=== PATIENT | female | born 1970 | race Caucasian/White ===

== ENCOUNTER → 2018-01-28 | Outpatient (CLI) | payer BC ==
--- NOTE | 2018-01-28 17:06 | DIAGNOSTIC IMAGING REPORT ---
L LOWER EXT JOINT WITHOUT CLINICAL HISTORY: LT ANKLE PAIN posterior back pain TECHNIQUE: Multiaxial MRI acquisition COMPARISON STUDY: None FINDINGS: Subchondral lesion of the medial talar dome. This measures 7 x 6 x 7.5 mm. There is no major bony substance loss although there is focal considerable thinning of the articular surface. Signal characteristics of the remaining osseous structures are unremarkable. Findings of a mild sprain of the lateral collateral ligament complex. The medial complex is intact. All remaining ligamentous and tendinous structures are unremarkable. Posterior tibial tendon is complex as well as peroneal complex appear unremarkable. IMPRESSION: 1. Osteochondral defect medial talar dome measuring 7 x 6 x 7.5 mm. 2. No major loss of bony substance, although there is significant thinning of the articular surface overlying this process. 3. Mild sprain lateral collateral ligament complex. 4. Remainder of the study is unremarkable. The above report was generated using voice recognition software. It may contain grammatical, syntax or spelling errors. Electronically signed by: Elliot Rodas M.D. 01/28/2018 5:04 PM Dictated Date/Time: 01/28/2018 4:56 PM
== END | disposition home or self-care (01) ==
LOC: C.MRI 15:35
PROVIDERS: ATTEND Family Medicine
DX: M25.572 Pain in left ankle and joints of left foot (principal); W19.XXXD Unspecified fall, subsequent encounter; R26.2 Difficulty in walking, not elsewhere classified; M21.962 Unspecified acquired deformity of left lower leg

== ENCOUNTER 2023-06-30 09:03 | Observation (INO) ==
--- NOTE | 2023-05-28 10:23 | PAT Medication Instructions ---
Medication Instructions Date of Service May 28, 2023 Home Medications amlodipine 10 mg tablet 10 mg PO QAM calcium carbonate 200 mg calcium (500 mg) chewable tablet (Tums) 200 mg PO UD PRN Heartburn ibuprofen 200 mg tablet 400 - 600 mg PO UD PRN Pain naproxen sodium 220 mg tablet (Aleve) 220 mg PO UD PRN Pain sertraline 25 mg tablet 25 mg PO QAM ASK your surgeon for instructions ibuprofen 200 mg tablet 400 - 600 mg PO UD PRN Pain naproxen sodium 220 mg tablet (Aleve) 220 mg PO UD PRN Pain DO NOT take the morning of surgery calcium carbonate 200 mg calcium (500 mg) chewable tablet (Tums) 200 mg PO UD PRN Heartburn Take morning of surgery With a small sip of water, OTHERWISE NOTHING TO EAT OR DRINK AFTER MIDNIGHT: amlodipine 10 mg tablet 10 mg PO QAM sertraline 25 mg tablet 25 mg PO QAM Other Notes If you have any questions please call us at [phone] or [phone] or [phone] or [phone]
--- NOTE | 2023-06-03 11:31 | Anesthesiology Consultation ---
Date of Service June 03, 2023 Assessment & Plan (1) Encounter for pre-operative examination: - BMP hemolyzed. Patient was contacted, she plans to have lab done through [facility] in [place]. Order to be faxed. She is going to call lab prior to going to confirm they have order and otherwise will contact our clinic. - awaiting PCP pre-operative evaluation. Form to be faxed to PCP. - Case discussed with Dr. Vargas who advised PCP optimization form regarding nocturnal symptoms of severe heartburn waking patient from sleep over recent weeks, alleviated with TUMS. Patient made aware at PAT visit and she is agreeable, states she will also reach out to her PCP. Optimization form and PAT testing to be faxed to PCP. Chart Review Chart Review: Pending: Refer to Additional Notes / Consult section and Patient seen in Pre Admission Testing Teaching & Discussion Pre-Anesthesia Teaching/Discussion Notes: Instructed NPO after midnight before surgery, except medications with 15 cc of water. Medication instructions provided according to the PAT guidelines. History Surgery Operation Date: 06/30/23 12:40 Proposed Procedures p Right Anterior Total Hip Arthroplasty - Jacky Pappas, Height/Weight Height: 5 ft 2.5 in Weight: 87.7 kg Allergies Allergy/AdvReac Type Severity Reaction Status Date / Time animal dander Allergy Unknown Sneezing, Verified 05/30/23 13:36 wheezing Medications Home Medications Medication Instructions Recorded Confirmed Last Taken amlodipine 10 mg tablet 10 mg PO QAM 05/27/23 05/27/23 Unknown calcium carbonate 200 mg calcium 200 mg PO UD PRN Heartburn 05/27/23 05/27/23 Unknown (500 mg) chewable tablet (Tums) ibuprofen 200 mg tablet 400 - 600 mg PO UD PRN Pain 05/27/23 05/27/23 Unknown naproxen sodium 220 mg tablet 220 mg PO UD PRN Pain 05/27/23 05/27/23 Unknown (Aleve) sertraline 25 mg tablet 25 mg PO QAM 05/27/23 05/27/23 Unknown Past Medical History Medical History Obesity History of COVID-summer-symptoms resolved Encounter for pain management Hx pain management issues post op with ankle surgeries: found rotating hydrocodone and ibuprofen was effective Avascular necrosis Heartburn Worsened over last 2 months, nocturnal symptoms of waking with severe heartburn-resolves with TUMs Asthma denies inhaler use Anxiety HTN (hypertension) controlled, stable per pt Patient denies h/o stroke, seizures, heart attack, heart failure, DM, blood clots/DVTs or blood transfusions. Exercise / Class Metabolic Activity II 4-5 Yardwork/Stairs/Walk up hill (denies chest discomfort or shortness of breath with 1 FOS) Past Surgical History Surgical History History of surgery Benign tumor removed from gum as H/O sinus surgery H/O wrist surgery Right/no hardware History of ankle surgery Total x3 (Left, one was replacement) History of ankle joint replacement Left Past Anesthesia History No Hx of Anesthesia Complications and No Family Hx of Anesthesia Complications History of PONV No Hx of PONV and No Hx of Motion Sickness Social History Smoking Status: Never smoker Do You Dip or Chew Tobacco: No Alcohol type: wine alcohol intake frequency: a few times a month Hx Substance Use: No substance use type: does not use Review of Systems Patient denies chest pain, shortness of breath, dyspnea on exertion, snoring, witnessed apneas, fever, chills, cough, wheezing, or palpitations. Physical Exam Vital Signs Vitals BP 142/95 P 96 TEMP 98.1 SP02 99% on RA RESP 17 Physical Patient resting comfortably in chair in no acute distress, alert and oriented, responding appropriately throughout visit Full cervical extension range of motion without pain TMD 3.5 finger breadths Mallampati Score 2 Dentition: lower front permanent bridge, denies chipped or loose teeth, c aps/crowns, or implants Lungs: normal respiratory effort. Good air movement, clear throughout to auscultation, no adventitious breath sounds Cardiac: regular rate and rhythm, no murmurs noted Carotid arteries: negative bruit bilat Lab Results Anesthesia Preop Results Results Anesthesia Widget: WBC 6.48 K/ul (4.8-10.8) 06/03/23 Hgb 13.2 g/dl (12.0-16.0) 06/03/23 Hct 40.8 % (37.0-47.0) 06/03/23 Plt 323 K/uL (130-400) 06/03/23 PT 10.5 Seconds (9.0-12.0) 06/03/23 PTT 28.1 Seconds (21.0-31.0) 06/03/23 INR 1.0 (0.9-1.1) 06/03/23 Blood Type A Positive 06/03/23 Antibody Screen NEGATIVE 06/03/23 Testing Electrocardiogram Date: 06/03/23 NSR, rate 88 bpm Chest X-Ray Date: 06/03/23 No acute process
[~2023-06-30 09:03] MED LIST: ACETAMINOPHEN 500 MG TAB PO SCH; BUPIVACAINE 0.5 % 5 MG/1 ML PF 10ML VIAL ONE; FAMOTIDINE 20 MG TAB PO SCH; GABAPENTIN 900 MG DOSE PO SCH; Ketorolac (*for OR use only*) 30 MG, dexAMETHasone 4 MG, KETAMINE HCL (**OR use only) 1... INFIL SCH; LR 60ML/HR IV SCH; TRANEXAMIC ACID 1,000 MG **IV Intra-op IV SCH; TRANEXAMIC ACID 1,000 MG **IV Pre-op IV SCH; ceFAZolin 2000MG 2,000 MG/15 ML SYR IV SCH; dexAMETHasone 4 MG TAB PO SCH
[2023-06-30] MEDS ORDERED: PROMETHAZINE HCL 6.25 MG in SODIUM CHLORIDE 0.9% 50 ML IV PRN (10:33)
[2023-06-30] MEDS ORDERED: ePHEDrine sulfate 50 MG/ML AMP IV PRN (10:33)
[2023-06-30] MEDS ORDERED: ONDANSETRON INJ 2 MG/ML 2 ML VIAL IV PRN ×2 (10:33→15:12)
[2023-06-30] MEDS ORDERED: ATROPINE SULFATE 0.1 MG/ML 10ML SYR IV PRN (10:33)
[2023-06-30] MEDS ORDERED: ONDANSETRON INJ 2 MG/ML 2 ML VIAL ONE (10:51)
[2023-06-30] MEDS ORDERED: PROPOFOL IV EMULSION 10 MG/ML 20 ML VIAL IV ONE ×2 (10:51→12:12)
--- NOTE | 2023-06-30 10:51 | History & Physical Bridge Note ---
Date of Service June 30, 2023 History & Physical Bridge Note I have examined the patient, reviewed the History & Physical and in the interval since the performance of the History & Physical I have noted the following changes of clinical significance: no changes noted
[2023-06-30] MEDS ORDERED: MIDAZOLAM HCL 1 MG/ML 2ML VIAL ONE ×2 (10:52→11:37)
[2023-06-30] MEDS ORDERED: DexMEDEtomidine HCL IV 100 MCG/ML VIAL IV ONE (10:52)
[2023-06-30] MEDS ORDERED: FAMOTIDINE/PF 20 MG/2 ML VIAL IV ONE (11:14)
[2023-06-30] MEDS ORDERED: ORTHO JOINT ANESTHETIC ONE (11:28)
[2023-06-30] MEDS ORDERED: PHENYLEPHRINE HCL 10 MG/ML VIAL ONE (12:11)
--- NOTE | 2023-06-30 12:43 | Operative Report ---
PG Post Operative Report Pre & Post Diagnosis Operation Date: 06/30/23 11:00 Pre-Op Diagnosis: Degenerative Joint Disease Right Knee Post-Op Diagnosis: Degenerative Joint Disease Right Knee I identified the patient and participated in the time-out.: Yes Procedure Operation Date: 06/30/23 11:00 Actual Procedures p Right Anterior Total Hip Arthroplasty(Right) - Jacky Pappas DO Surgeon Jacky Pappas DO Senior Data Warehouse Architect Jacky Wang PA-C Estimated Blood Loss 250 Findings Consistent with Post-Op Diagnosis Specimens Right femoral head Description of Procedure Implants used I used a [employer]immer[employer]omet total hip arthroplasty system with a size 4 standard offset Taperloc stem, a 48 mm G7 cup with a 25mm screw, an E1 polyethylene liner, a 32 mm ceramic head with a -3 neck. Stefania arrived at the hospital for the above procedure. She was seen in the preoperative holding area and the operative extremity was identified and signed. She was given a spinal anesthetic, a preoperative antibiotic, and TXA. She was then taken back to the operating room and laid on the table in the supine position. She was given basic sedation. The operative leg was secured to a Puristst leg positioner. The hip was then prepped and draped in sterile fashion. A timeout was done and the patient and the operative extremity was properly identified. An anterior approach was used. Dissection was taken down through the fascia and the tensor muscle belly was retracted laterally and the rectus was retracted medially. The circumflex vessels were identified and ligated. The capsule was then incised and tagged for later repair. The femoral neck was then cut and the femoral head was removed. The acetabulum was exposed. Time was spent doing a complete circumferential labral release. Sequential reaming of the acetabulum up to a size 47 reamer was done. Final reamings were done under fluoroscopy to ensure appropriate version. A Biomet 48 mm G7 cup was then impacted into place. A single 25 mm screw was placed. The E1 polyethylene liner was then snapped into place. Surrounding soft tissues were then injected with 100 cc of an ortho pedic pain control cocktail. The proximal femur was then exposed. Sequential broaching up to a size 4 broach was done. Off that broach a size 32 head with a -3 neck was trialed. The hip was reduced and fluoroscopic images showed anatomic alignment of the implants in acceptable length. The broach was removed. The final size 4 standard offset Taperloc stem was then impacted into place. A ceramic 32 mm head with a -3 neck was then impacted onto the stem and the hip was reduced. Final fluoroscopic images showed anatomic alignment of the hip. The capsule was then closed with #1 Vicryl suture. A dilute betadyne lavage was then done for 3 minutes. The joint was then irrigated with normal saline solution. The fascia was closed with #1 PDS suture. Skin was closed with 2-0 Vicryl, lucy, and a Silverlon dressing. She was then transferred to a hospital bed and taken to the post anesthesia care unit in stable condition. She tolerated the procedure well. Jacky Wang PA-C, was present for the entire procedure. He was critical for patient positioning, prepping, draping, retraction exposure, wound closure and application of sterile dressing. I attest to the content of the Intraoperative Record and any orders documented therein. Any exceptions are noted below.
--- NOTE | 2023-06-30 13:34 | XRay Report ---
XR hip 1V RT w pelvis CLINICAL HISTORY: Postoperative evaluation. COMPARISON: Right hip radiographs December 18, 2022. FINDINGS: Alignment of the total right hip arthroplasty is anatomic. There is no periprosthetic frac ture or unexpected radiopaque foreign body. There are skin lucy. IMPRESSION: Expected findings following total right hip arthroplasty. ACT 112: Negative or not required by law. Electronically signed by: Ryan Saldaña M.D. 06/30/2023 1:32 PM
--- NOTE | 2023-06-30 13:52 | Fluoroscopy Report ---
FL hip RT 1V CLINICAL HISTORY: Right anterior hip COMPARISON STUDY: Right hip radiographs December 18, 2022. FLUOROSCOPY TIME: 11 seconds. Ka, r: 1.3148 mGy FLUOROSCOPIC IMAGES: 2 FINDINGS: Fluoroscopy was provided during total right hip arthroplasty. Acetabular screw is noted. Patino rdware is intact. There is no fracture. IMPRESSION: Fluoroscopy provided during total right hip arthroplasty. ACT 112: Negative or not required by law. Electronically signed by: Ryan Saldaña M.D. 06/30/2023 1:50 PM
[2023-06-30] MEDS: fentaNYL citrate PF 100 MCG/2 ML VIAL IV PRN ×2 (14:00→14:06)
[2023-06-30] MEDS ORDERED: MAGNESIUM HYDROXIDE SUSP 30 ML UDC PO PRN (15:12)
[2023-06-30] MEDS ORDERED: NALOXONE HCL 0.4 MG/1 ML VIAL/CARP IV PRN (15:12)
[2023-06-30] MEDS ORDERED: bisacodyL 10 MG SUPP PR PRN (15:12)
[2023-06-30] MEDS ORDERED: METOCLOPRAMIDE HCL INJ 5 MG/ML 2 ML VIAL IV PRN (15:12)
--- NOTE | 2023-06-30 15:19 | Anesthesiology Progress Note ---
Date of Service June 30, 2023 Anesthesia Post Procedure Vital Signs Vital Signs: Temp Pulse Resp BP BP Pulse Ox O2 Del Method 06/30/23 14:40 85 18 132/78 93 Room Air 06/30/23 14:25 89 14 126/80 92 Room Air 06/30/23 14:10 85 15 123/86 94 Room Air 06/30/23 13:55 82 17 117/84 94 Room Air 06/30/23 13:40 80 20 108/81 94 Room Air 06/30/23 13:30 37.1 C 81 19 116/83 95 Room Air 06/30/23 13:20 86 18 93/69 L 95 Room Air 06/30/23 13:10 84 16 93/72 L 100 Oxymask 06/30/23 13:03 36.7 C 94 H 14 97/65 L 99 Oxymask 06/30/23 09:36 37.2 C 106 H 20 148/99 H 98 Room Air O2 Flow Rate 06/30/23 14:40 06/30/23 14:25 06/30/23 14:10 06/30/23 13:55 06/30/23 13:40 06/30/23 13:30 06/30/23 13:20 06/30/23 13:10 7 06/30/23 13:03 7 06/30/23 09:36 Pain Intensity Right Hip: Pain Intensity: 4 Transfer of Care Handoff Completed per policy Notes Mental Status: alert / awake / arousable and participated in evaluation Patient Amnestic to Procedure: Yes Nausea / Vomiting: adequately controlled Pain: adequately controlled Airway Patency, RR, SpO2: stable & adequate BP & HR: stable & adequate Hydration State: stable & adequate Neuraxial Anesthesia: was administered and sensory block is resolving Anesthetic Complications: no major complications apparent and Pt Satisfied with anesthetic care
[2023-06-30] MEDS: ACETAMINOPHEN 500 MG TAB PO SCH ×2 (15:54→21:58)
[2023-06-30] MEDS: KETOROLAC 30 MG/ML VIAL IV SCH ×2 (15:55→20:38)
[2023-06-30] MEDS: SODIUM CHLORIDE 0.9% 1,000 ML IV SCH (15:56)
[2023-06-30] MEDS: oxyCODONE HCL IR 5 MG TAB (IMMEDIATE RELEASE) PO PRN (18:41)
[2023-06-30] MEDS: ceFAZolin 2000MG 2,000 MG/15 ML SYR IV SCH (19:29)
[2023-06-30] MEDS: HYDROmorphone INJ 0.5 MG/0.5 ML SYR IV PRN ×2 (19:29→23:30)
[2023-06-30] MEDS: ASPIRIN 81 MG ECTAB PO SCH (20:39)
[2023-06-30] MEDS: DOCUSATE SODIUM 100 MG CAP PO SCH (20:39)
[2023-06-30] MEDS ORDERED: SENNA 8.6 MG TAB PO SCH (21:00)
[2023-07-01] MEDS: SODIUM CHLORIDE 0.9% 1,000 ML IV SCH (02:08)
[2023-07-01] MEDS: ceFAZolin 2000MG 2,000 MG/15 ML SYR IV SCH (03:33)
[2023-07-01] MEDS: oxyCODONE HCL IR 5 MG TAB (IMMEDIATE RELEASE) PO PRN ×3 (03:33→12:12)
[2023-07-01] MEDS: KETOROLAC 30 MG/ML VIAL IV SCH ×2 (03:34→09:24)
[2023-07-01] MEDS: ACETAMINOPHEN 500 MG TAB PO SCH (05:55)
[2023-07-01] MEDS ORDERED: dexAMETHasone 4 MG TAB PO SCH (08:00)
[2023-07-01] MEDS: ASPIRIN 81 MG ECTAB PO SCH (08:02)
[2023-07-01] MEDS: DOCUSATE SODIUM 100 MG CAP PO SCH (08:03)
[2023-07-01] MEDS ORDERED: MULTIVITAMIN TAB PO SCH (09:00)
[2023-07-01] MEDS ORDERED: INFLUENZA VIRUS QUADRIVALENT VACCINE (IIV4) 0.5 ML SYR IM ONE (09:00)
[2023-07-01] MEDS ORDERED: SERTRALINE HCL 50 MG TABLET PO SCH (09:00)
[2023-07-01] MEDS ORDERED: amLODIPine BESYLATE 5 MG TAB PO SCH (09:00)
--- NOTE | 2023-07-01 09:36 | Orthopedic Progress Note ---
Date of Service July 01, 2023 Assessment & Plan (1) Status post right hip replacement: Overall, she is doing quite well today with good pain control to the right hip. She is going to work with physical therapy today to work on ambulation and range of motion exercises. She is on aspirin for DVT prophylaxis. She can be discharged later today once evaluated by physical therapy. She will follow-up in 2 weeks with orthopedics for postoperative care. Subjective . Stefania was seen and evaluated this morning on rounds resting comfortably at bedside no apparent distress. She notes that her pain is well-controlled today. She has been ambulating to the bathroom and transitioning from bed to chair. She is set to work with therapy later today. She denies any other concerns today. Review of Systems All systems reviewed & are unremarkable except as noted in HPI & below. Physical Exam . On physical examination of the right hip, her dressing is in place, clean, dry, and intact. Her leg is out in full extension. She has active plantarflexion dorsiflexion to the right ankle. +2 DP and PT pulses. Less than 2-second capillary refill. Normal sensation. Neurovascular intact. Results & Data Results & Data Laboratory Results . Diagnostic Findings . Postoperative x-rays of the right hip show prosthesis to be in anatomical alignment with no signs of fracture complication or loosening. PG Care Time/CCT Total # of Minutes Spent Total Time Spent with Patient: Total time spent is greater than 50% in coordination of care (as documented) at patient's floor/unit and/or counseling patient: Coding Level of Care Code 75123 Post Operative Follow-Up Diagnoses Status post right hip replacement Z96.641
--- NOTE | 2023-07-01 09:38 | Discharge Summary ---
Date of Service July 01, 2023 Principal Diagnosis Same as "Discharge Diagnosis" noted below under Discharge Instructions. Discharge Exam . On physical examination of the right hip, her dressing is in place, clean, dry, and intact. Her leg is out in full extension. She has active plantarflexion dorsiflexion to the right ankle. +2 DP and PT pulses. Less than 2-second capillary refill. Normal sensation. Neurovascular intact. Discharge Data Procedures Performed Operation Date: 06/30/23 11:00 Actual Procedures p Right Anterior Total Hip Arthroplasty(Right) - Jacky Pappas DO Ordered Studies 06/30/23 11:00 FL hip RT 1V Routine Hospital Course (1) Status post right hip replacement: On June 30, [address] [facility], [place] and underwent a right total hip arthroplasty without complications. She had a spinal anesthetic. Postoperatively, she was started on aspirin for DVT prophylaxis and transferred to the general orthopedic floor in stable condition. Her hospital course was uneventful. On postoperative day 1, her vital signs were stable and her pain was well-controlled. She participated well with with physical therapy doing ambulation and range of motion exercises. She was then discharged home in stable condition. She is going to follow-up with orthopedics in 2 weeks for postoperative care. PG Care Time/CCT Total # of Minutes Spent Total Time Spent with Patient: Total time spent is greater than 50% in coordination of care (as documented) at patient's floor/unit and/or counseling patient: Discharge Plan Discharge Items Patient Disposition: Home - Home Health Services Reason For Visit: Degenerative Joint Disease Right hip Discharge Diagnosis: Right hip replacement Activity: Per Instructions section Non-emergency contact: Surgeon Call non-emergency contact if: your wound has increased redness and your wound has increased drainage Follow-up/Referrals: PCP,NO [Primary Care Provider] - Diet: Regular Addtl Attending Provider Instructions: Activity and Therapy Recommendations: * If you are using [facility] then therapy will be provided at your home until they feel you have accomplished all of your goals. * If you are using [facility] then Physical Therapy will be provided until they feel you are ready to start Outpatient Physical Therapy. * If you are not using home therapy then Outpatient Physical Therapy should start about 3-5 days from your day of surgery. Therapy will last about 6-10 weeks * You were shown a series of exercises in the hospital. Do these exercises three times each day including the exercises you were shown in physical therapy. * Get up and walk several times each day.~ For the first four weeks, try not to stand or walk for more than one hour at a time. If you do stand or walk for more than one hour, you will not hurt anything, but your leg will likely swell.~~ * As you feel comfortable, you may change from the walker or crutches to a cane and~then to independent walking. Medications: * Narcotic You will likely be sent home from the hospital with a prescription for the narcotic pain medication that worked best throughout your stay. * Cefadroxil -take the antibiotic twice a day for 10 days to help prevent infection * Aspirin Most patients will be required to take Aspirin 81mg twice a day for 6 weeks after surgery. This is obtained [id number] and a prescription is not necessary. * Other medications may be prescribed for specific circumstances. If you have any questions, please call the office at . * Resume previous home medications unless otherwise instructed TEDs/Elastic Stockings: The white elastic stockings help limit swelling and prevent blood clots from forming in your legs. The more you wear them, the more they work. Wear them for six weeks. Dressing Care: Leave the Silverlon dressing in place for 7 days. After 7 days you may remove the dressing. If the incision is not draining then you may leave the lucy open to air. If there is a little bit of drainage or if the lucy are getting stuck on your clothing then cover the incision with a dry dressing. The lucy will be removed at your 2 week follow-up appointment. Showering: You may shower with the Silverlon dressing in place. Do not let the shower spray hit the dressing directly. Pat the Silverlon dressing dry. If the dressing becomes wet underneath, then simply remove the dressing. Keep the incision dry until you are 7 days out from the day of surgery. After 7 days you may remove the Silverlon dressing and shower with the lucy exposed. Let soapy water run over the lucy and pat them dry. Do not scrub or soak the incision. Things To Watch For: * Drainage from the incision site that occurs more than one week after your surgery. * Increased redness at the incision site. * Fever above 102 degrees Fahrenheit. * Unusual chest pain or shortness of breath. * Call [facility] at with any of the above problems Follow-Up Visit: Follow-up with Dr. Pappas's PA (Jacky Wang) 2-3 weeks after your day of surgery. He will remove your lucy and answer any questions. If you have any additional questions or concerns, Dr Pappas is usually in the office at the same time and will be available An appointment was probably scheduled when you signed-up for surgery in the office. If you have any questions call Office Instructions: More detailed instructions as well as Frequently Asked Questions were provided in a folder by our office when you signed-up for surgery. Please review these instructions when you get home. If you have any further questions or concerns, please feel free to call the office at [phone] Pending Studies at Discharge: No Stand-Alone Forms: My [facility], Smoking Cessation Medications and DC Order Prescriptions: New aspirin 81 mg Tablet,Delayed Release (Dr/Ec) 81 mg PO BID 42 Days Qty: 0 0RF hydrocodone-acetaminophen 5-325 mg tablet 1 tab PO Q6H PRN (Reason: pain) Qty: 30 0RF cefadroxil 500 mg capsule 500 mg PO BID 10 Days Qty: 20 0RF Continued amlodipine 10 mg Tablet 10 mg PO QAM sertraline 25 mg Tablet 25 mg PO QAM calcium carbonate [Tums] 200 mg calcium (500 mg) Tablet,Chewable 200 mg PO UD PRN (Reason: Heartburn) Discontinued naproxen sodium [Aleve] 220 mg Tablet 220 mg PO UD PRN (Reason: Pain) ibuprofen 200 mg Tablet 400 - 600 mg PO UD PRN (Reason: Pain) Admission Data Admit Date/Time: 06/30/23 13:10 Attending Provider: Jacky Pappas Admit Provider: Jacky Pappas Primary Care Provider: PCP,JULIO CÉSAR
== END 2023-07-01 13:09 | disposition home health service (06) ==
LOC: 3E 09:03 → ASU 09:03